=== PATIENT | female | born 1980 | race Caucasian/White ===

== ENCOUNTER 2018-06-23 19:06 | Emergency (ER) | payer BC ==
[~2018-06-23] VITALS: Ht 170.2 cm; Wt 68.0 kg
--- NOTE | 2018-06-23 19:53 | NUR ---
PT AMBULATORY W/ STEADY GAIT, C/O LOWER ABD PAIN W/ URINARY FREQUENCY, REPORTED DIARRHEA, NO N/V X2 DAYS. AOX4, AFEBRILE W/ RESP EVEN & UNLABORED, NAD NOTED. PT AT BEDSIDE. DR. BAUTISTA AT BEDSIDE FOR FURTHER EVAL.
[2018-06-23 19:58] LABS: APPEARANCE,URINE Clear (CLEAR); BILIRUBIN,URINE Negative (NEGATIVE); BLOOD, URINE Moderate Ery/uL (NEGATIVE); COLOR,URINE Yellow (YELLOW); KETONES,URINE Negative (NEGATIVE); LEUKOCYTE ESTERASE ,URINE Moderate (NEGATIVE); NITRITE, URINE Negative (NEGATIVE); PROTEIN,URINE Trace mg/dl (NEGATIVE); UGLUCOSE Negative (NEGATIVE); UROBILINOGEN,URINE 0.2 EU/dL (0.2)
[2018-06-23] MEDS ORDERED: KETOROLAC TROMETHAMINE INJ 30 MG/ML VIAL ONE (19:58)
[2018-06-23] MEDS ORDERED: KETOROLAC TROMETHAMINE INJ 30 MG/ML VIAL IV ONE (20:00)
[2018-06-23] MEDS ORDERED: ONDANSETRON HCL/PF 4 MG/2 ML VIAL IVP ONE (20:00)
--- NOTE | 2018-06-23 20:03 | NUR ---
[facility] CALLED FOR PELVIC US
[2018-06-23 20:06] LABS: BACTERIA,URINE Few /HPF (None Seen); SQUAMOUS EPITHELIAL CELL,UR Few /HPF (None Seen)
--- NOTE | 2018-06-23 20:06 | NUR ---
pt medicated as ordered for lower abd pain, refusing zofran, denies any N/V at this time. pt ambulatory w/ steady gait to restroom, report having urinary frequency having to go every couple minutes.
--- NOTE | 2018-06-23 20:19 | NUR ---
US tech at bedside.
--- NOTE | 2018-06-23 20:36 | NUR ---
PT AMBULATORY W/ STEADY GAIT TO RESTROOM.
--- NOTE | 2018-06-23 21:42 | NUR ---
Dr. Kingsley at bedside for pelvic exam, reported normal pelvic exam.
--- NOTE | 2018-06-23 21:49 | NUR ---
IV removed. Catheter intact and site benign. Pressure and 4x4 applied to site. No bleeding noted.Patient discharged to home in stable condition. Written and verbal after care instructions given. Patient verbalizes understanding of instruction.
[2018-06-23 21:55] VITALS: BP 118/74
== END 2018-06-23 21:55 | disposition home or self-care (01) ==
LOC: ER 19:07
DX: N30.81 Other cystitis with hematuria (principal); Z98.890 Other specified postprocedural states; Z60.2 Problems related to living alone
CPT/HCPCS: 76856; 81001; 84703; 87077; 87086; 87186; 96374; 99285; A4606; A6403; J1885; Z7610; 81000-TC